=== PATIENT | female | born 1980 | race Caucasian/White ===

== ENCOUNTER 2019-05-26 22:09 | Inpatient (IN) | payer OTHER, SELFPAY ==
--- NOTE | 2019-05-26 22:09 | LDADM ---
This patient, Elisa Botello, was admitted to Labor/Delivery/Recovery 120 on 05/26/19 at 22:09. Plans for labor, pain management and were discussed with patient. Patient/family oriented to hospital policies and general routines including ID bracelet, bed and alarms, visiting hours, pain management, procedures, bathroom and other care routines, personal items, smoking policy, room service/diet and guest tray routines, security routines, and visiting hours. Patient/Family are encouraged to report perceived risks to care and to ask questions if they do not understand what they are told or what they should do. See OBIX for further documentation.
[2019-05-27] VITALS (53 sets, daily range): BP systolic 86–145; BP diastolic 57–95; PULSE 69–107; RESP 14–20; TEMP 36.4–37.9; O2SAT 94–100; BMI 29.6
[2019-05-27] MEDS: LACTATED RINGERS 1,000 ML 125 ML IV CONT ×2 (01:30→02:46)
[2019-05-27 01:38] LABS: Basophils Absolute Auto 0.1 K/mm3 (0.0-0.1); Basophils Percent Auto 0.4 % (0.2-1.2); Eosinophils Absolute Auto 0.2 K/mm3 (0-0.3); Eosinophils Percent Auto 1.3 % (0-4.4); Hematocrit 34.5 % (37.0-47.0); Hemoglobin 11.4 g/dL (12.0-15.0); Immature Granulocyte Absolute 0.17 K/mm3 (0.00-0.031); Immature Granulocyte Percent A 1.2 % (0-0.5); Lymphocytes Absolute Auto 2.57 K/mm3 (0.9-3.2); Lymphocytes Percent Auto 17.7 % (18.3-44.2); Mean Corpuscular Hemoglobin 27.2 pg (26-34); Mean Corpuscular Volume 82.3 fl (80-100); Monocytes Absolute Auto 1.2 K/mm3 (0.1-0.6); Monocytes Percent Auto 8.1 % (2.6-8.5); Neutrophils Absolute Auto 10.4 K/mm3 (1.3-6.7); Neutrophils Percent Auto 71.3 % (45.5-73.1); Platelet Count Result 155 k/mm3 (150-375); Red Blood Count 4.19 M/mm3 (4.2-5.4); Red Cell Distribution Width 14.6 % (11.5-14.5); White Blood Count 14.6 K/mm3 (4.5-10.0)
--- NOTE | 2019-05-27 01:55 | WPDANESEPPF ---
Anes - Initial Pre Proc Eval Procedure: Operation Date: 05/27/19 01:30 Proposed Procedures p Section - Jose Norman MD Operation Date: 06/12/19 07:30 Proposed Procedures p Repeat Section - Jason Bucio MD Date/Time: 05/27/19 01:55 Surgeon: Jason Bucio MD Pre Op Diagnosis: Contractions Patient Data Age: 39 Gender: F Height: 5 ft 3 in Weight: 75.9 kg Last Vital Signs Pulse 93 05/27/19 01:42 BP 118/79 05/27/19 01:42 Allergies Allergy/AdvReac Type Severity Reaction Status Date / Time No Known Allergies Allergy Unknown Verified 05/30/11 09:09 Home Medications Medication Instructions Recorded Confirmed Type PNV cmb#95-ferrous fumarate-FA 1 tablet PO DAILY 05/18/19 05/18/19 History [] ergocalciferol (vitamin D2) 1,250 mcg PO WEEKLY 05/18/19 05/18/19 History [Vitamin D2] Laboratory Tests 05/27/19 05/27/19 01:29 01:29 WBC 14.6 K/mm3 H K/mm3 (4.5-10.0) RBC 4.19 M/mm3 L M/mm3 (4.2-5.4) Hgb 11.4 g/dL L g/dL (12.0-15.0) Hct 34.5 % L % (37.0-47.0) MCV 82.3 fl fl (80-100) MCH 27.2 pg pg (26-34) MCHC 33.0 g/dl g/dl (32-36) RDW 14.6 % H % (11.5-14.5) Plt Count 155 k/mm3 k/mm3 (150-375) MPV 12.0 fl H fl (7.4-10.4) Immature Gran % (Auto) 1.2 % H % (0-0.5) Neut % (Auto) 71.3 % % (45.5-73.1) Lymph % (Auto) 17.7 % L % (18.3-44.2) [place] % (Auto) 8.1 % % (2.6-8.5) Eos % (Auto) 1.3 % % (0-4.4) Baso % (Auto) 0.4 % % (0.2-1.2) Lymph # (Auto) 2.57 K/mm3 K/mm3 (0.9-3.2) [place] # (Auto) 1.2 K/mm3 H K/mm3 (0.1-0.6) Eos # (Auto) 0.2 K/mm3 K/mm3 (0-0.3) Baso # (Auto) 0.1 K/mm3 K/mm3 (0.0-0.1) Abs Immat Gran (auto) 0.17 K/mm3 H K/mm3 (0.00-0.031) Absolute Neuts (auto) 10.4 K/mm3 H K/mm3 (1.3-6.7) Absolute Nucleated RBC 0.0 K/mm3 K/mm3 (0.0-0.012) Nucleated RBC % 0.0 % % (0.0-0.2) RPR Pending Patient hx anesthesia problems: none Family hx anesthesia problems: none [facility] Surgical History Surgical History (Updated 05/27/19 @ 01:56 by Jason Padron MD) History of D&C Previous delivery, delivered Family History Family History Other Unknown family medical history Social History Social History Smoking status: Never smoker Substance use: never Gender identity (if verbalized by the patient): Female Spiritual care concerns: No Anes - Eval Final PreProcedure Day of Procedure 05/27/19 01:55 Patient weight: overweight Heart: regular rate and rhythm Lungs: clear to auscultation Airway: Mallampati scale class II Neurological: alert and oriented Last oral intake: >/= 8 hours ASA classification: II Emergent: no Anesthetic plan: proceed Anesthesia type and monitoring: regional spinal and standard monitoring Informed Consent: The patient's anesthetic plan and its attendant risks and benefits were discussed with the patient/family/POA. Questions were solicited and answers provided to the satisfaction of the patient/family/POA.
--- NOTE | 2019-05-27 02:42 | PM.IMHP ---
H&P: HPI History of Present Illness Chief complaint: Contractions Narrative: 39 y/o at 37 weeks here with contractions. Cervix has changed from 1 to 2.5 cm per RN. History of prior , desiring repeat. Also would like tubal ligation. Review of Systems Review of Systems: All systems reviewed & are unremarkable except as noted in HPI and below PMFSH Surgical History Surgical History History of D&C Previous delivery, delivered Family History Family History Other Unknown family medical history Social History Social History Smoking status: Never smoker Substance use: never Gender identity (if verbalized by the patient): Female Spiritual care concerns: No Meds Home Medications and Allergies Home Medications Medication Instructions Recorded Confirmed Type PNV cmb#95-ferrous fumarate-FA 1 tablet PO DAILY 05/18/19 05/18/19 History [] ergocalciferol (vitamin D2) 1,250 mcg PO WEEKLY 05/18/19 05/18/19 History [Vitamin D2] Allergies Allergy/AdvReac Type Severity Reaction Status Date / Time No Known Allergies Allergy Unknown Verified 05/30/11 09:09 Vital Signs Vital Signs - 24 hr 05/27/19 01:42 05/27/19 01:58 Temperature 36.9 C Pulse Rate 93 Respiratory Rate 18 Blood Pressure 118/79 Exam Const: Orientation/consciousness: patient oriented x3 Other: Well-developed, well-nourished female in no acute distress. Neck: Thyroid: thyroid normal Lymphatic: no lymphadenopathy noted (in neck, axilla or inguinal nodes) Resp: Effort & Inspection: normal respiratory effort Auscultation: clear to auscultation bilaterally Cardio: Rate: regular rate Rhythm: regular rhythm Heart sounds: S1 normal heart sound present and S2 normal heart sound present GI: Other: ABD: Soft, nontender, nondistended. Gravid. No guarding or rebound tenderness. No hepatosplenomegaly. NST reactive. TOCO: contractions every 3-5 min. : General: Yes no CVA tenderness Other: Cervix 2-3/50/-2 per RN. Back/Spine/Pelvis: Back: no CVA tenderness Skin: General skin exam: normal color and no rashes or lesions noted Neuro: General: patient oriented x3 Extrem: Other: Extremities: nontender with no edema Psych: Mental Status: mental status grossly normal Affect: normal affect H&P: Results Labs Labs: Short CBC 05/27/19 Range/Units 01:29 WBC 14.6 H (4.5-10.0) K/mm3 Hgb 11.4 L (12.0-15.0) g/dL Hct 34.5 L (37.0-47.0) % Plt Count 155 (150-375) k/mm3 Assessment and Plan Assessment and plan (1) Unwanted fertility: Code(s): Z30.09 - Encounter for other general counseling and advice on contraception Status: Acute Assessment and Plan: We reviewed risks and benefits regarding repeat , and she would like to proceed. Regarding contraception, she understands there are temporary methods available to her. She understands that there are nonsurgical options as well as surgical options. She understands that tubal ligation will render her permanently sterile. She understands that there is a failure rate associated with tubal ligation, as well as an inherent ectopic gestation risk. Furthermore, she understands risks of surgery to include risks of anesthesia, risks of pain, infection, bleeding, blood products, thromboembolic phenomena and damage to adjacent structures such as bowel, bladder, ureters, blood vessels and nerves. She understands all these risks and elects to proceed with repeat delivery with bilateral tubal ligation. (2) Previous delivery, delivered: Code(s): O34.219 - Maternal care for unspecified type scar from previous delivery Status: Acute Additional Plan
[2019-05-27] MEDS: ceFAZolin 2 GM/D5W 50 ML 2 GM/50 ML BAG IVPB (03:28)
--- NOTE | 2019-05-27 04:12 | PM.OBPRVD ---
OB - Delivery Note Procedure Delivery date: 05/27/19 Procedure: Procedures Operation Date: 05/27/19 01:30 Actual Procedures Side Surgeon p Repeat Section Jose Norman MD Operation Date: 06/12/19 07:30 <No data on this case meets the specified criteria> 1) Repeat LTCS 2) Bilateral tubal ligation via modified [place] technique Delivery monitor: external FHT and external uterine Route of delivery: (Repeat LTCS) Specimen: Yes (Cord blood) Estimated blood loss (mL): 485 Anesthesia type: Epidural Disposition: PACU Complications: None Narrative: Preop diagnoses: 1) IUP at 37 weeks with labor 2) Prior delivery, desires repeat 3) Desired sterility Postop diagnoses: Same The patient was taken to the operating room where she was prepared and draped in the usual sterile fashion in dorsal supine position with a leftward tilt. She received cefazolin preoperatively. Epidural anesthesia was found to be adequate. A Pfannenstiel skin incision was made along the previous scar line and was carried through to the underlying layer of the fascia. The fascia was incised in the midline and the incision was extended laterally. The fascia was dissected free of the underlying rectus muscles. The rectus muscles were in the midline. The peritoneum was identified, tented up and entered sharply. The peritoneal incision was extended superiorly and inferiorly with good visualization of the bladder. The bladder blade was placed. The vesicouterine peritoneum was identified, tented up and entered sharply. The incision was extended laterally and the bladder flap was developed. The bladder blade was replaced. The uterus was then incised sharply in a transverse fashion along the lower uterine segment. The incision was extended laterally. The infant's head was delivered atraumatically to the sterile field, followed by the body. The nose and mouth were bulb suctioned. After a delay, the cord was clamped and cut. The infant was handed off the field. Cord blood was collected. The placenta was removed manually and was passed off the field. The uterus was exteriorized and cleared of all clots and debris. The uterine incision was reapproximated using 0 Monocryl in a running, locked fashion. A second, imbricating layer of the same suture was required for hemostasis. Excellent hemostasis resulted as did excellent reapproximation of the normal anatomy. The left fallopian tube was then identified by following it out to the fimbriated end. It was grasped in the midportion with a [place] clamp and a loop of tube was ligated with a free tie of 0 plain gut. The tubal segment was then transected and the specimen was passed off to be sent to pathology. Hemostasis was excellent. Attention was turned to the right fallopian tube which was similarly identified, ligated and transected. Once again, excellent hemostasis resulted. The uterus was returned the abdomen. The pelvis was irrigated copiously with warmed normal saline. Rigorous hemostasis was assured. The fascial layer was reapproximated using 0 Vicryl in a running fashion. The skin was closed with a running, subcuticular stitch of 4 0 Vicryl. Dermaflex was applied externally. Sponge, lap, needle and instrument counts were correct. The patient was taken to the recovery room in stable condition. The infant went to the nursery in stable condition. I was present and scrubbed the entire procedure. Baby Date of : 05/27/19 Time of : 03:39 Weeks of gestation at delivery: 37 Infant gender: Male Weight (pounds): 7 Weight (ounces): 14 presentation: vertex Placenta delivery description: Manual Removal and Normal Configuration cord vessel description: 3 Vessels and Nuchal Cord score one minute: 8 score five minutes: 9
--- NOTE | 2019-05-27 04:15 | SUR.OPER ---
Arrived to recovery with 40units of Pitocin in 1L LR (per ) running with about 200ml to finish bag off from OR.
--- NOTE | 2019-05-27 04:15 | PM.OBDSVD ---
DS: Diagnosis Admitting Diagnosis Admitting Diagnosis: IUP at 37 weeks Labor Prior , desires repeat Desired sterility OB - DS: Summary OB Procedures : None OB Procedures Intrapartum: OB Procedures: : None Peripartum Data Procedures: Procedures Operation Date: 05/27/19 01:30 Actual Procedures Side Surgeon p Repeat Section Jose Norman MD Operation Date: 06/12/19 07:30 <No data on this case meets the specified criteria> Repeat LTCS with concurrent bilateral tubal ligation DS: Data Data Completed and Pending Labs on day of discharge: Labs from last 24 hours 05/27/19 05/27/19 05/27/19 01:29 01:29 01:29 WBC 14.6 H RBC 4.19 L Hgb 11.4 L Hct 34.5 L MCV 82.3 MCH 27.2 MCHC 33.0 RDW 14.6 H Plt Count 155 MPV 12.0 H Immature Gran % (Auto) 1.2 H Neut % (Auto) 71.3 Lymph % (Auto) 17.7 L [place] % (Auto) 8.1 Eos % (Auto) 1.3 Baso % (Auto) 0.4 Lymph # (Auto) 2.57 [place] # (Auto) 1.2 H Eos # (Auto) 0.2 Baso # (Auto) 0.1 Abs Immat Gran (auto) 0.17 H Absolute Neuts (auto) 10.4 H Absolute Nucleated RBC 0.0 Nucleated RBC % 0.0 RPR Pending Blood Type A Positive Antibody Screen Negative Discharge Plan Discharge Attending physician on discharge: Jose Norman Consulting providers: Jason Padron Discharging Clinician: Jose Norman Patient Disposition: Home, Self-Care Activity: may shower, may drive after 2 weeks and pelvic rest Diet: regular Wound Care Instructions: follow printed instructions and incision open to air Discharge Instructions: Education: Mom and Baby Guide Given to: Mother Follow-Up: Call your delivering provider's office for an appointment to be seen in: 4 Weeks Mom and baby should come to the [facility] for the follow-up appointment. Appointment Date/Time: May 31, 2019 at 10:00 am What to expect at your follow-up visit: Physical Assessment Call [phone] if you are unable to keep your appointment time. BREAST CARE: 1. Wear a snug supportive bra. 2. For engorgement discomfort: Breast Feeding: A. Apply warm moist washcloths B. Express milk as needed to relieve engorgement C. Wear loose clothing 3. For sore nipples: A. Identify correct latch-on B. Apply warm moist washcloths before and after nursing C. Air dry nipples after nursing D. May apply Lansin[place] cream to nipples ABDOMINAL INCISION: (if applicable) 1. Allow incision to air dry 2. Do NOT use lotions for powders on your incision 3. When showering, allow soap and water to run over the incision, but do not wash incision ACTIVITY: 1. Rest as much as possible. 2. Do not exercise or lift anything heavier than your baby (such as laundry or other children.) 3. Avoid stairs or driving as much as possible. 4. Do not put anything into the vagina. No douching, tampons, or sexual activity until seen by physician. NOTIFY PHYSICIAN IF YOU HAVE ANY QUESTIONS OR IF ANY OF THE FOLLOWING SYMPTOMS OCCUR: 1. If your incision becomes red, swollen, or more painful than what you have experienced in the hospital. 2. If your vaginal bleeding becomes foul smelling. 3. If your vaginal bleeding becomes more heavy than a period or if your bleeding changes from pink to bright red. However, you may pass an occasional walnut-sized clot once or twice for the first week . 4. If you experience a sharp, shooting pain in you calves. 5. If you discover a hard, reddened area on your breast or if you experience flu-like symptoms. DIET: 1. Eat regular, well-balanced meals. 2. Drink plenty of fluids daily. If , drink to thirst.Call or return if temperature above 100.4? F, increased abdominal pain, increased vaginal bleeding or any new problems. Stand Alone Forms: General Disc
[2019-05-27] MEDS: OXYTOCIN 30 UNITS/NS 500 ML 30 UNITS/500 ML BAG 125 UNITS (04:57)
--- NOTE | 2019-05-27 06:10 | SUR.PHASEI ---
Report given to Martita Burnett RN to take over and complete pt's recovery.
[2019-05-27] MEDS: KETOROLAC 30 MG/ML VIAL (*BKC) IV PUSH (06:40)
--- NOTE | 2019-05-27 07:07 | OBPPTRN ---
Patient transferred to post room # via ( ). Support person present. Oriented to unit, room, information board, rooming in, admission packet and security measures. Patient verbalizes understanding.
[2019-05-27] MEDS: DEXTROSE 5%/0.45% SOD CHL 1,000 ML 125 ML IV CONT (09:18)
--- NOTE | 2019-05-27 11:17 | OBPPTRN ---
Patient transferred to post room # 291 via stretcher. Support person present. Oriented to unit, room, information board, rooming in, admission packet and security measures. Patient verbalizes understanding.
[2019-05-27] MEDS: DOCUSATE SODIUM 100 MG CAPSULE PO (16:18)
[2019-05-27] MEDS: IBUPROFEN 600 MG TABLET PO ×2 (16:18→23:42)
[2019-05-28 06:00] LABS: Basophils Percent Auto 0.2 % (0.2-1.2); Eosinophils Absolute Auto 0.1 K/mm3 (0-0.3); Eosinophils Percent Auto 0.4 % (0-4.4); Hematocrit 29.1 % (37.0-47.0); Hemoglobin 9.4 g/dL (12.0-15.0); Immature Granulocyte Absolute 0.13 K/mm3 (0.00-0.031); Immature Granulocyte Percent A 0.8 % (0-0.5); Lymphocytes Absolute Auto 2.02 K/mm3 (0.9-3.2); Lymphocytes Percent Auto 12.4 % (18.3-44.2); Mean Corpuscular HGB Conc 32.3 g/dl (32-36); Mean Corpuscular Hemoglobin 26.9 pg (26-34); Mean Corpuscular Volume 83.4 fl (80-100); Mean Platelet Volume 11.9 fl (7.4-10.4); Monocytes Absolute Auto 1.2 K/mm3 (0.1-0.6); Monocytes Percent Auto 7.5 % (2.6-8.5); Neutrophils Absolute Auto 12.9 K/mm3 (1.3-6.7); Neutrophils Percent Auto 78.7 % (45.5-73.1); Platelet Count Result 154 k/mm3 (150-375); Red Blood Count 3.49 M/mm3 (4.2-5.4); Red Cell Distribution Width 14.8 % (11.5-14.5); White Blood Count 16.3 K/mm3 (4.5-10.0)
[2019-05-28 07:35] VITALS: BP 108/66; PULSE 84; RESP 20; TEMP 36.9; O2SAT 97
--- NOTE | 2019-05-28 08:10 | WPDANLDPN2 ---
Anes-Prog Note L&D Date/Time: 05/28/19 08:10 Comfortable throughout: labor and section Neuraxial method: epidural Epidural/Spinal procedure site: clean & non-tender Neuro status: Neuro function grossly intact. Cardiovascular status: normal Respiratory status: normal Airway patency: baseline Mental status: baseline Post-Op hydration status: normal Vital Signs: Last Vital Signs Temp 36.9 C 05/28/19 07:35 Pulse 84 05/28/19 07:35 Resp 20 05/28/19 07:35 BP 108/66 05/28/19 07:35 Pulse Ox 97 05/28/19 07:35 Pain score (VAS): 0/10 Patient resting in bed at time of assessment, appears comfortable. Support person at bedside. I/O: Intake & Output 05/27/19 05/28/19 05/28/19 23:59 07:59 15:59 Intake Total 100 Output Total 675 750 Balance -575 -750 Post-procedural complaints: none Patient feedback: Patient satisfied with anesthetic care.
--- NOTE | 2019-05-28 08:11 | WPDANLDNPN2 ---
Anes-Prog Note L&D-Neuraxial Date/Time: 05/28/19 08:11 Patient feedback: Patient satisfied with post-operative pain management.
[2019-05-28] MEDS: DOCUSATE SODIUM 100 MG CAPSULE PO ×2 (09:01→17:00)
[2019-05-28] MEDS: IBUPROFEN 600 MG TABLET PO ×2 (09:01→20:42)
[2019-05-28] MEDS: POLYSACCHARIDE IRON COMPLEX 150 MG CAPSULE PO ×2 (09:01→17:01)
[2019-05-28] MEDS: MULTIVIT/MIN/PREN/FOL AC/IRON TABLET 1 TAB PO (09:02)
[2019-05-28] MEDS: SIMETHICONE 80 MG TAB.CHEW PO (09:05)
--- NOTE | 2019-05-28 12:33 | PM.OBPNVD ---
OB - PN: Subj Subjective Date/time seen: 05/28/19 12:33 Narrative: Pain OK. Tolerating diet. Would like circumcision for son. OB - PN: Obj Data Labs CBC & Chem 7: 05/28/19 04:43 Labs: Laboratory Results - last 24 hr 05/28/19 04:43 WBC 16.3 H RBC 3.49 L Hgb 9.4 L Hct 29.1 L MCV 83.4 MCH 26.9 MCHC 32.3 RDW 14.8 H Plt Count 154 MPV 11.9 H Immature Gran % (Auto) 0.8 H Neut % (Auto) 78.7 H Lymph % (Auto) 12.4 L [place] % (Auto) 7.5 Eos % (Auto) 0.4 Baso % (Auto) 0.2 Lymph # (Auto) 2.02 [place] # (Auto) 1.2 H Eos # (Auto) 0.1 Baso # (Auto) 0.0 Abs Immat Gran (auto) 0.13 H Absolute Neuts (auto) 12.9 H Absolute Nucleated RBC 0.0 Nucleated RBC % 0.0 OB - PN A/P Plan Comments: A: POD#1, doing well. P: Routine care. Reviewed circ. Exam Psych: Other: AVSS I/O OK ABD soft, nontender, fundus firm. Incision c/d/i. EXT nontender
[2019-05-28] MEDS: ACETAMINOPHEN 325 MG TABLET 650 MG PO (17:01)
[2019-05-28 20:35] VITALS: BP 114/74; PULSE 83; RESP 15; TEMP 36.8; O2SAT 98
--- NOTE | 2019-05-29 07:06 | P.DS_ITS ---
DS: Diagnosis Admitting Diagnosis Admitting Diagnosis: Encounter for other general counseling and advice on contra ception term/labor/prev c section DS: Summary Time Spent with Patient Time attestation: Total time spent providing and/or coordinating discharge services: Exam Const: General: no acute distress Eyes: General: appearance normal, both eyes and all related structures Neck: Neck: supple and no JVD Thyroid: thyroid normal Resp: Effort & Inspection: normal respiratory effort Auscultation: clear to auscultation bilaterally Cardio: Rate: regular rate Rhythm: regular rhythm GI: Inspection: non-distended GI Palp: Yes Soft to palpation, No Tenderness to palpation present (GI) and No Guarding due to palpation present (GI) Auscultation: normal bowel sounds : General: Yes bladder normal to palpation External Female Exam: normal external appearance Speculum Exam - Vagina: normal vaginal discharge and No vaginal bleeding Speculum Exam - Cervix: nontender Bimanual exam- vagina & uterus: bladder normal to palpation and No Cervical tenderness present OB/external & speculum: No vaginal bleeding Skin: General skin exam: no rashes or lesions noted Extrem: General: normal to inspection and no edema Psych: Mental Status: mental status grossly normal Affect: normal affect DS: Data Data Completed and Pending Pending studies at discharge: Pending at discharge 05/27/19 03:45 Surgical [PTH] Routine Discharge Plan Discharge Attending physician on discharge: Jose Norman Discharging Clinician: Jose Norman Patient Disposition: Home, Self-Care Activity: may shower, may drive after 2 weeks and pelvic rest Diet: regular Wound Care Instructions: follow printed instructions and incision open to air Discharge Instructions: Call or return if temperature above 100.4? F, increased abdominal pain, increased vaginal bleeding or any new problems. Stand Alone Forms: General Discharge Information Follow-up/Referrals: Jason Bucio MD [Physician] - (4 weeks) Discharge Medications: New hydrocodone-acetaminophen [[place]] 5-325 mg tablet 1 - 2 tablet PO Q6H PRN (Reason: pain) Qty: 30 RF: 0 ibuprofen 600 mg tablet 600 mg PO Q6H PRN (Reason: cramps) Qty: 30 RF: 0 ferrous sulfate 325 mg (65 mg iron) tablet 325 mg PO DAILY Qty: 30 RF: 0 Continued PNV cmb#95-ferrous fumarate-FA [] 28 mg iron- 800 mcg Tablet 1 tablet PO DAILY RF: 0 ergocalciferol (vitamin D2) [Vitamin D2] 1,250 mcg (50,000 unit) Capsule 1,250 mcg PO WEEKLY RF: 0 Date of admission: 05/26/19 22:09 Primary Care Provider: Rohan,Johana Admitting Provider: Jason Bucio Attending physician on admission: Jason Bucio
--- NOTE | 2019-05-29 07:10 | PM.OBPNVD ---
OB - PN: Subj Subjective Date/time seen: 05/29/19 07:10 Patient comments: no complaints and pain well controlled baby status: doing well and nursing well OB - PN: Obj Data Labs CBC & Chem 7: 05/28/19 04:43 OB - PN A/P Time Spent With Patient Time: Total time spent is greater than 50% in coordination of care (as documented) at patient's floor/unit and/or counseling patient: Review of Systems Review of Systems: All systems reviewed & are unremarkable except as noted in HPI and below Exam Const: General: no acute distress Eyes: General: appearance normal, both eyes and all related structures Neck: Neck: supple and no JVD Thyroid: thyroid normal Resp: Effort & Inspection: normal respiratory effort Auscultation: clear to auscultation bilaterally Cardio: Rate: regular rate Rhythm: regular rhythm GI: Inspection: normal to inspection and incision (cdi fundus firm) Auscultation: normoactive bowel sounds : General: Yes bladder normal to palpation External Female Exam: normal external appearance Speculum Exam - Vagina: normal vaginal discharge and No vaginal bleeding Speculum Exam - Cervix: nontender Bimanual exam- vagina & uterus: bladder normal to palpation and No Cervical tenderness present OB/external & speculum: No vaginal bleeding Skin: General skin exam: no rashes or lesions noted Extrem: General: normal to inspection and no edema Psych: Mental Status: mental status grossly normal Affect: normal affect
[2019-05-29 07:55] VITALS: BP 126/85; PULSE 95; RESP 18; TEMP 37.3; O2SAT 98
[2019-05-29] MEDS: LANOLIN (LANSINOH) 7.5 GM CREAM 1 APPLIC TOPICAL (08:04)
[2019-05-29] MEDS: POLYSACCHARIDE IRON COMPLEX 150 MG CAPSULE PO (08:04)
[2019-05-29] MEDS: DOCUSATE SODIUM 100 MG CAPSULE PO (08:04)
[2019-05-29] MEDS: MULTIVIT/MIN/PREN/FOL AC/IRON TABLET 1 TAB PO (08:04)
[2019-05-29] MEDS: ACETAMINOPHEN 325 MG TABLET 650 MG PO (08:06)
[2019-05-29 09:24] LABS: Rapid Plasma Reagin Non-Reactive (NonReactive)
[2019-05-31 09:58] VITALS: BP 135/85; PULSE 100; RESP 16; TEMP 36.8; O2SAT 98
== END 2019-05-29 11:20 | disposition home or self-care (01) | DRG 785 ==
LOC: ANHLDR 05-27 04:17 → ANHOB2 05-27 07:13
PROVIDERS: Admitting Provider Obstetrics & Gynecology; PCP Internal Medicine; Visit Provider Obstetrics & Gynecology
PROC: 10D00Z1 Extraction of Products of Conception, Low, Open Approach (ICD-10-PCS; CPT 59514; principal; 2019-05-27 01:30)
DX: O34.211 Maternal care for low transverse scar from previous cesarean delivery (principal); Z3A.37 37 weeks gestation of pregnancy; Z37.0 Single live birth; Z30.2 Encounter for sterilization; O69.81X0 Labor and delivery complicated by cord around neck, without compression, not applicable or unspecified; Z23 Encounter for immunization
CPT/HCPCS: 36415; 85025; 86592; 86850; 86900; 86901; 88302; A9270; J0690; J1885; J2274; J2405; J2590; J3010; J7120

== ENCOUNTER 2023-02-19 13:46 | Emergency (ER) | payer OTHER, SELFPAY ==
--- NOTE | 2023-02-19 13:57 | ED.SKABFB ---
HPI - Skin/Abscess/Foreign Bdy General Chief complaint: Skin/Abscess/Foreign Body Stated complaint: painful rash Time Seen by Provider: 02/19/23 13:57 Source: patient Mode of arrival: ambulatory Limitations: no limitations History of Present Illness HPI narrative: Christie is a 43-year-old female patient presenting to the clinic today with complaints of a left lateral painful rash. She reports that the rash and pain started yesterday. Thinks that she may have shingles. Reports the pain is to the lateral side and then radiates into the back but does not cross the midline. Related Data Home Medications Medication Instructions Recorded Confirmed rosuvastatin 40 mg tablet 40 mg PO DAILY 02/19/23 02/19/23 Allergies Allergy/AdvReac Type Severity Reaction Status Date / Time No Known Allergies Allergy Unknown Verified 02/19/23 14:19 Review of Systems Review of Systems: Pertinent positives per HPI. Patient denies any fever, chills, headache, visual changes, dizziness, cough, runny nose, sore throat, shortness of breath, chest pain, palpitations, nausea, vomiting, diarrhea, constipation, abdominal pain, or any urinary issues. PMFSH Surgical History Surgical History History of D&C Previous delivery, delivered Family History Family History Other Unknown family medical history Social History Social History Smoking status: Never smoker Substance use: never Gender identity (if verbalized by the patient): Female Spiritual care concerns: No Comments At the time of my signature, I reviewed and agree with the nursing past medical, surgical, social, and family history. There is no relevant family history pertinent to the patient complaint. Exam Narrative: General: Well-developed, well nourished, in no apparent distress Head: Normocephalic, atraumatic. Cardio: Regular rate and rhythm, s1 and s2 normal, no murmur appreciated. Resp: Clear to auscultation bilaterally, no rhonchi, rales, wheezing or rubs. Integumentary: [place], warm, and dry, red, raised, bumpy- painful rash to the left lower lateral abdomen with pain radiating into her back following the dermatome-not crossing the midline. Course Course Emergency Course: Portions of this record may have been created with voice recognition software. Level of Care: Express Care Visit Vital Signs Vital signs: Vital signs reviewed MDM - Skin/Abscess/Foreign Bdy MDM Narrative Medical decision making narrative: At the time of visit patient is resting comfortably on the exam table. Patient appears to be nontoxic. I suspect patient has shingles. Prescription for acyclovir was sent to the pharmacy. Supportive measures were discussed with the patient and they voiced understanding discharge instructions and agrees to treatment plan. Return precautions reviewed Differential Diagnosis Differential diagnosis: Likely abscess of skin or subcutaneous tissue, viral exanthem and herpes zoster Discharge Plan Discharge Clinical Impression: Shingles Qualifiers: Herpes zoster complications: without complications Qualified Code(s): B02.9 - Zoster without complications Patient Disposition: Home, Self-Care Condition: Stable Instructions: Antibiotic Form, Shingles (ED) Additional Instructions: Keep area clean and dry Keep covered if draining Avoid being around any individuals or immunocompromise individuals May take Tylenol/Motrin as needed for pain May apply lidocaine patch to the affected area to help alleviate pain Take acyclovir as prescribed Follow-up with your PCP in 3-5 days if symptoms persist or sooner if they worsen Prescriptions: New acyclovir 800 mg tablet 800 mg PO Q4H 7 Days Qty: 42 0RF Rx Instructions: while awake; give 5 do
[2023-02-19 14:14] VITALS: BP 140/95; PULSE 97; RESP 18; TEMP 36.5; O2SAT 99
== END 2023-02-19 14:40 | disposition home or self-care (01) ==
PROVIDERS: Emergency Provider Nurse Practitioner Family; PCP Internal Medicine
DX: B02.9 Zoster without complications (principal)
CPT/HCPCS: 99213; G0463

== ENCOUNTER 2023-07-15 14:55 | Outpatient (CLI) | payer OTHER, SELFPAY ==
--- NOTE | ~2023-07-15 | MM_ITS ---
EXAMINATION: MM screening kevin BI w keerthi HISTORY: Screening TECHNIQUE: Craniocaudal and mediolateral oblique 3-D tomosynthesis images were obtained and synthetic 2-D images were generated. CAD analysis was submitted and interpreted. COMPARISON: No prior mammogram is available for comparison at this institution. BREAST PARENCHYMAL COMPOSITION: Not dense: There are scattered areas of fibroglandular density. FINDINGS: There is no evidence of suspicious mass, calcification, or architectural distortion to sugg est malignancy in either breast. There has been no suspicious interval change. IMPRESSION: 1. No mammographic evidence of malignancy. 2. Recommend routine screening mammography in one year. BI-RADS Category 1: Negative Reviewed, dictated and finalized at location [facility].
== END 2023-07-15 14:56 ==
LOC: MICIMG 14:55
PROVIDERS: PCP Obstetrics & Gynecology; Visit Provider Obstetrics & Gynecology
DX: Z12.31 Encounter for screening mammogram for malignant neoplasm of breast (principal)
CPT/HCPCS: 77063; 77067

== ENCOUNTER → 2024-03-13 09:26 | Outpatient (CLI) | payer OTHER, SELFPAY ==
--- NOTE | ~2024-03-13 | XR_ITS ---
Cervical Spine: AP, lateral, open-mouth views Clinical History: Pain Findings: There is mild reversal of the normal cervical lordosis. No fracture or subluxation evident. The intervertebral disc spaces are well maintained. There is minimal facet arthropathy in the cervic al spine. Pre-vertebral soft tissues are unremarkable. Impression: Minimal degenerative change, as above. Reviewed, dictated and finalized at [facility]. [employer] Impression: Minimal degenerative change, as above.
== END ==
LOC: EXPTRAD 09:27
PROVIDERS: PCP Nurse Practitioner Family; Visit Provider Nurse Practitioner Family
DX: M47.892 Other spondylosis, cervical region (principal)
CPT/HCPCS: 72040

== ENCOUNTER 2024-05-19 14:18 | Outpatient (CLI) | payer OTHER, SELFPAY ==
--- NOTE | ~2024-05-19 | MR_ITS ---
EXAMINATION: MR cervical spine wo con DATE: 05/19/2024 14:46 INDICATION: Cervicalgia TECHNIQUE: Magnetic resonance imaging (MRI) of the cervical spine was performed without intravenous c ontrast. Sequences included sagittal T2-weighted FSE, sagittal T2-weighted FS FSE, sagittal T1-weight ed FSE, axial MERGE and axial T2-weighted FSE. COMPARISON: Cervical spine radiographs dated 03/13/2024 FINDINGS: Mild reversal of the normal cervical lordosis. 2 mm retrolisthesis C5 on C6 and C6 on C7. Vertebral body heights are normal. Bone marrow signal intensity is normal. Mild disc height loss at C2-C3, C3- C4 and C5-C6. Cord signal intensity is normal. Visualized cervical soft tissues are unremarkable. The following disc levels are specifically discussed: C2-C3: The disc does not extend beyond the endplate margin. There is mild right uncovertebral joint o steoarthritis. There is mild right and moderate left facet joint osteoarthritis. There is no neural f oraminal stenosis. There is no central canal stenosis. C3-C4: Disc is bulging which flattens the ventral surface of the cord. There is moderate left and mil d right uncovertebral joint osteoarthritis. There is mild bilateral facet joint osteoarthritis. There is mild left neural foraminal stenosis. There is mild central canal stenosis. C4-C5: Annular fissure with small left foraminal zone disc protrusion which indents the left ventral surface of the cord. There is mild bilateral uncovertebral joint osteoarthritis. There is mild right and moderate left facet joint osteoarthritis. There is mild bilateral, left greater than right, neura l foraminal stenosis. There is mild central canal stenosis. C5-C6: Disc is bulging with superimposed left foraminal zone annular fissure and small disc protrusio n. There is moderate bilateral uncovertebral joint osteoarthritis. There is mild bilateral facet join t osteoarthritis. There is mild bilateral, left greater than right neural foraminal stenosis. There i s mild central canal stenosis. C6-C7: Disc is mildly bulging. There is moderate bilateral uncovertebral joint osteoarthritis. There is mild bilateral facet joint osteoarthritis. There is mild left and mild to moderate right neural fo raminal stenosis. There is mild central canal stenosis. C7-T1: The disc does not extend beyond the endplate margin. There is mild left uncovertebral joint os teoarthritis. There is mild bilateral facet joint osteoarthritis. There is no neural foraminal stenos is. There is no central canal stenosis. IMPRESSION: 1. Mild cervical spondylosis. Reviewed, dictated and finalized at location A.
== END 2024-05-19 14:19 | disposition home or self-care (01) ==
PROVIDERS: PCP Nurse Practitioner Family; Visit Provider Nurse Practitioner Family
DX: M43.02 Spondylolysis, cervical region (principal)
CPT/HCPCS: 72141

== ENCOUNTER → 2024-08-07 13:29 | Outpatient (CLI) | payer OTHER, SELFPAY ==
--- NOTE | ~2024-08-07 | XR_ITS ---
HISTORY: BRIAN hand pain, months, no trauma or injury COMPARISON: None TECHNIQUE: 3 views of the bilateral hands were performed. FINDINGS: No acute fracture is identified. Periarticular osteopenia is detected bilaterally, left greater than right. Gullwing deformity is identified within the proximal interphalangeal joint spaces of the second, thir d, fourth and fifth digits of both hands. Distal interphalangeal joint space narrowing is also noted, within the bilateral hands, right greater than left. The remaining joint spaces are preserved. The carpal arcs are intact. Mild radiocarpal joint space narrowing with sclerosis of the distal radius is present (left greater t german right). Trace negative ulnar variance is detected within the right wrist. No significant soft tissue swelling. No radiopaque foreign body is identified. IMPRESSION: No acute fracture or dislocation is detected within the bilateral hands. Findings consistent with diffuse osteoarthritis, as detailed above. Reviewed, dictated and finalized at location A. IMPRESSION: No acute fracture or dislocation is detected within the bilateral h ands. Findings consistent with diffuse osteoarthritis, as detailed above.
== END ==
PROVIDERS: PCP Nurse Practitioner Family; Visit Provider Nurse Practitioner Family
DX: M19.042 Primary osteoarthritis, left hand (principal); M19.041 Primary osteoarthritis, right hand
CPT/HCPCS: 73130